=== PATIENT | male | born 1990 | race Two or more races ===

== ENCOUNTER 2017-01-26 11:09 | Emergency (ER) | payer SELFPAY ==
[~2017-01-26] VITALS: Ht 193 cm; Wt 86.2 kg
[2017-01-26 11:18] VITALS: BP 147/85
[2017-01-26] MEDS ORDERED: LORazepam Inj 2mg/ml 1ml IV ONE (12:30)
--- NOTE | 2017-01-26 13:20 | Emergency Room Report ---
History of Present Illness General Chief Complaint: General Complaint Source: Patient Present Illness HPI 26YOM with no med history presents with 2 days left sided chest pressure 2 days after doing meth and cocaine for the first time. Pain better standing up. No assoc fever/chills, SOB, abd pain. No CAD risk factors. No trauma to chest. Allergies: Coded Allergies: No Known Allergies (Unverified , 01/26/17) Patient History Past Medical History: none Past Surgical History: none Pertinent Family History: none Social History: Reports: drug use Immunizations: UTD Reviewed Nursing Documentation: PMH: Agreed, PSxH: Agreed Nursing Documentation-PMH Past Medical History: No Stated History Review of Systems All Other Systems: negative except mentioned in HPI Physical Exam Vital Signs Date Time Temp Pulse Resp B/P Pulse Ox O2 Delivery O2 Flow Rate FiO2 01/26/17 11:18 98.4 105 16 147/85 99 Room Air Sp02 EP Interpretation: reviewed, abnormal General Appearance: normal inspection, well appearing, no apparent distress, alert, GCS 15, non-toxic Head: normocephalic, atraumatic Eyes: bilateral eye EOMI, bilateral eye PERRL ENT: normal ENT inspection, hearing grossly normal, normal voice Neck: normal inspection, full range of motion, supple, no bony tend Respiratory: normal inspection, lungs clear, normal breath sounds, no respiratory distress, no retraction, no wheezing, chest symmetrical, palpation of chest normal Cardiovascular #1: regular rate, rhythm, no edema Gastrointestinal: normal inspection, normal bowel sounds, non tender, soft, no guarding, no hernia Genitourinary: no CVA tenderness Musculoskeletal: normal inspection, back normal, normal range of motion, Anaya' s Sign negative Neurologic: normal inspection, alert, oriented x3, responsive, 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 - Troponin 0. - Utox + for meth. - Mild rhabdo - Improved after IVF hydration and ativan - Counselled against drug abuse DC home EKG Diagnostic Results Rate: normal Rhythm: NSR ST Segments: no acute changes ASA given to the pt in ED: No Rhythm Strip Diag. Results EP Interpretation: yes Rate: 96 Rhythm: NSR, no PVC's, no ectopy Chest X-Ray Diagnostic Results EP Interpretation: Yes Findings: no consolidation, no effusion, no pneumothorax, no acute cardiopulmonary disease Number of Views: 1 Last Vital Signs Date Time Temp Pulse Resp B/P Pulse Ox O2 Delivery O2 Flow Rate FiO2 01/26/17 11:18 98.4 105 16 147/85 99 Room Air Status: improved Disposition: HOME, SELF-CARE Referrals: NOT CHOSEN IPA/,REFERRING (PCP) SISSY OLIVAREZ M.D. January 26, 2017 13:20
[2017-01-26 13:23] LABS: BASOPHILS % (AUTO) 1.4 % (0.0-2.0); EOSINOPHILS % (AUTO) 0.6 % (0.0-3.0); LYMPHOCYTES % (AUTO) 21.3 % (20.0-45.0); MEAN CORPUSCULAR HEMOGLOBIN 31.6 PG (27.0-31.0); MEAN CORPUSCULAR HGB CONC 34.3 G/DL (32.0-36.0); MEAN CORPUSCULAR VOLUME 92 FL (80-99); MEAN PLATELET VOLUME 6.4 FL (6.5-10.1); MONOCYTES % (AUTO) 6.8 % (1.0-10.0); PLATELET COUNT 247 K/UL (150-450); RED CELL DISTRIBUTION WIDTH 11.6 % (11.6-14.8); WHITE BLOOD COUNT 7.1 K/UL (4.8-10.8)
[2017-01-26 13:38] LABS: TROPONIN I < 0.30 ng/mL (<=0.30)
[2017-01-26 13:39] VITALS: BP 149/69
[2017-01-26 13:41] LABS: ALANINE AMINOTRANSFERASE 23 U/L (3-41); ALBUMIN/GLOBULIN RATIO 1.5 (1.0-2.7); ANION GAP 22 (5-15); ASPARTATE AMINO TRANSFERASE 33 U/L (5-40); CALCIUM 9.4 mg/dL (8.6-10.2); CARBON DIOXIDE 20 mEQ/L (20-30); CHLORIDE 100 mEQ/L (98-107); CREATININE 0.9 mg/dL (0.7-1.2); GLOMERULAR FILTRATION RATE > 60 mL/min (>60); HEMOLYSIS 11; POTASSIUM 3.9 mEQ/L (3.4-4.9); SODIUM 142 mEQ/L (135-145); TOTAL PROTEIN 7.4 g/dL (6.6-8.7)
[2017-01-26 13:51] LABS: CKMB 10.6 ng/mL (< 6.7)
--- NOTE | 2017-01-26 14:23 | Diagnostic Imaging Report ---
Indication: PAIN Technique: One view of the chest Comparison: none Findings: Lungs and pleural spaces are clear. Heart size is normal. Impression: No acute process
[2017-01-26 14:43] VITALS: BP 127/73
--- NOTE | 2017-01-27 18:36 | Cardiology Report ---
APPROVED REPORT EKG Measurement Heart [id number] Normal sinus rhythm Rightward axis Borderline ECG
== END 2017-01-26 14:48 | disposition home or self-care (01) ==
LOC: EMR 11:40
DX: R07.9 Chest pain, unspecified (principal); M62.82 Rhabdomyolysis; F15.10 Other stimulant abuse, uncomplicated
CPT/HCPCS: 36415; 71010; 80053; 80300; 82550; 82553; 84484; 85025; 93005; 96360; 96374